=== PATIENT | female | born 1960 | race Hispanic/Latino ===

== ENCOUNTER 2018-07-08 22:47 | Emergency (ER) | payer MEDICAID, OTHER ==
[2018-07-08] MEDS ORDERED: PHENYTOIN SODIUM 50 MG/ML 2ML VIAL IV ONE (23:42)
[2018-07-08] MEDS ORDERED: SODIUM CHLORIDE 0.9% 100 ML IV ONE (23:42)
[2018-07-08 23:47] LABS: BASOPHILS % (AUTO) 1.2 % (0.0-5.0); EOSINOPHILS % (AUTO) 2.3 % (0.0-8.0); HEMATOCRIT 35.4 % (36-48); MONOCYTES % (AUTO) 7.4 % (3.0-13.0); NEUTROPHILS % (AUTO) 69.1 % (40.0-77.0); PLATELET COUNT (AUTO) 278 K/uL (130-400); RED BLOOD CELL COUNT(AUTO) 3.77 MIL/uL (4.00-5.50); RED CELL DISTRIBUTION WIDTH 14.3 % (11.0-15.5); WHITE BLOOD COUNT (AUTO) 15.4 K/uL (4.8-10.8)
[2018-07-08 23:53] LABS: CREATININE 0.8 mg/dL (0.5-1.5); POTASSIUM 3.7 mmol/L (3.5-5.1)
[2018-07-08 23:53] LABS: APPEARANCE,URINE Clear (CLEAR); BILIRUBIN,URINE Negative (NEGATIVE); COLOR,URINE Yellow (YELLOW); GLUCOSE, URINE (UA) Negative (NEGATIVE); KETONES,URINE Negative (NEGATIVE); LEUKOCYTE ESTERASE ,URINE Moderate (NEGATIVE); NITRATE,URINE Negative (NEGATIVE); OCCULT BLOOD,URINE Trace (NEGATIVE); PH,URINE 5.5 (5.0-8.0); PROTEIN,URINE Negative (NEGATIVE); UROBILINOGEN,URINE 0.2 mg/dL (0.2-1.0)
[2018-07-08] MEDS ORDERED: ACETAMINOPHEN-CODEINE ELIXIR 5 ML UDCUP ONE (23:57)
[2018-07-09] LABS: ALBUMIN 3.3 g/dL (3.5-5.0); BILIRUBIN,TOTAL 0.1 mg/dL (0.2-1.0); PHENYTOIN (DILANTIN) 7.7 mcg/mL (10.0-20.0); TOTAL PROTEIN, SERUM 7.6 g/dL (6.0-8.3)
[2018-07-09 00:02] LABS: BACTERIA,URINE Rare /HPF (None Seen); RBC,URINE 0-1 /HPF (0-1)
== END 2018-07-09 01:05 | disposition home or self-care (01) ==
LOC: EDH 22:47
DX: S00.12XA Contusion of left eyelid and periocular area, initial encounter (principal); G40.909 Epilepsy, unspecified, not intractable, without status epilepticus; J32.9 Chronic sinusitis, unspecified; R89.2 Abnormal level of other drugs, medicaments and biological substances in specimens from other organs, systems and tissues; I10 Essential (primary) hypertension; W18.39XA Other fall on same level, initial encounter; Y93.89 Activity, other specified; Y92.89 Other specified places as the place of occurrence of the external cause; Y99.8 Other external cause status
CPT/HCPCS: 36415; 70450; 70486; 80053; 80185; 81001; 85025; 93005; 96374; 99285; J1165

== ENCOUNTER 2019-03-25 23:35 | Emergency (ER) | payer MEDICAID ==
[2019-03-25 23:53] LABS: BASOPHILS % (AUTO) 0.5 % (0.0-5.0); EOSINOPHILS % (AUTO) 3.2 % (0.0-8.0); HEMATOCRIT 38.3 % (36-48); LYMPHOCYTES % (AUTO) 32.6 % (21.0-51.0); MEAN CORPUSCULAR HGB CONC 33.7 g/dL (32.0-36.0); MEAN CORPUSCULAR VOLUME 92.1 fL (79-99); MONOCYTES % (AUTO) 7.3 % (3.0-13.0); NEUTROPHILS % (AUTO) 56.4 % (40.0-77.0); PLATELET COUNT (AUTO) 237 K/uL (130-400); RED BLOOD CELL COUNT(AUTO) 4.16 MIL/uL (4.00-5.50); RED CELL DISTRIBUTION WIDTH 13.6 % (11.0-15.5); WHITE BLOOD COUNT (AUTO) 13.4 K/uL (4.8-10.8)
[2019-03-26 00:02] LABS: CREATININE 0.8 mg/dL (0.5-1.5); POTASSIUM 3.6 mmol/L (3.5-5.1)
[2019-03-26 00:05] LABS: INR 0.97 (0.85-1.15); PARTIAL THROMBOPLASTIN TIME 24.3 SEC (26.3-35.5); PROTHROMBIN TIME 10.2 SEC (9.6-11.6)
[2019-03-26 00:06] LABS: ALBUMIN 3.7 g/dL (3.5-5.0); BILIRUBIN,TOTAL 0.2 mg/dL (0.2-1.0); PHENYTOIN (DILANTIN) 10.3 mcg/mL (10.0-20.0); TOTAL PROTEIN, SERUM 7.5 g/dL (6.0-8.3)
[2019-03-26 01:10] LABS: APPEARANCE,URINE CLEAR (CLEAR); BILIRUBIN,URINE NEGATIVE (NEGATIVE); COLOR,URINE YELLOW (YELLOW); GLUCOSE, URINE (UA) NEGATIVE (NEGATIVE); KETONES,URINE NEGATIVE (NEGATIVE); LEUKOCYTE ESTERASE ,URINE TRACE (NEGATIVE); NITRATE,URINE NEGATIVE (NEGATIVE); OCCULT BLOOD,URINE TRACE-INTACT (NEGATIVE); PROTEIN,URINE NEGATIVE (NEGATIVE); UROBILINOGEN,URINE 0.2 mg/dL (0.2-1.0)
[2019-03-26 01:23] LABS: BACTERIA,URINE None Seen /HPF (None Seen); RBC,URINE 0-1 /HPF (0-1); SQUAMOUS EPITHELIAL CELL,UR Rare /HPF (0-2); WBC,URINE 0-1 /HPF (0-1)
[2019-03-26] MEDS ORDERED: CEFTRIAXONE SODIUM 1 GM ONE (02:31)
[2019-03-26] MEDS ORDERED: PHENYTOIN SODIUM 100 MG ERCAP PO ONE (02:31)
== END 2019-03-26 03:25 | disposition home or self-care (01) ==
LOC: EDH 23:35
DX: G40.909 Epilepsy, unspecified, not intractable, without status epilepticus (principal); J01.90 Acute sinusitis, unspecified; R79.0 Abnormal level of blood mineral; I10 Essential (primary) hypertension
CPT/HCPCS: 36415; 70450; 70486; 72125; 80053; 80185; 81001; 82550; 84484; 85025; 85610; 85730; 93005; 96374; 99285; J0696

== ENCOUNTER 2021-07-17 16:51 | Emergency (ER) | payer MEDICAID ==
[~2021-07-17] VITALS: Ht 157.5 cm; Wt 60.8 kg
[2021-07-17] MEDS ORDERED: LORAZEPAM 2 MG/ML 1 ML VIAL ONE (18:37)
[2021-07-17] MEDS ORDERED: LORAZEPAM 2 MG/ML 1 ML VIAL IVP STA (18:38)
[2021-07-17 18:48] LABS: BASOPHILS % (AUTO) 0.4 % (0.0-5.0); EOSINOPHILS % (AUTO) 0.8 % (0.0-8.0); HEMATOCRIT 39.9 % (36-48); LYMPHOCYTES % (AUTO) 16.8 % (21.0-51.0); MEAN CORPUSCULAR HEMOGLOBIN 27.6 pg (27.0-33.0); MEAN CORPUSCULAR HGB CONC 32.3 g/dL (32.0-36.0); MEAN CORPUSCULAR VOLUME 85.3 fL (79-99); MONOCYTES % (AUTO) 4.5 % (3.0-13.0); PLATELET COUNT (AUTO) 284 K/uL (130-400); RED BLOOD CELL COUNT(AUTO) 4.68 MIL/uL (4.00-5.50); RED CELL DISTRIBUTION WIDTH 13.2 % (11.0-15.5); WHITE BLOOD COUNT (AUTO) 21.8 K/uL (4.8-10.8)
[2021-07-17 19:46] LABS: CREATININE 1.1 mg/dL (0.5-1.5); POTASSIUM 4.8 mmol/L (3.5-5.1)
[2021-07-17 19:51] LABS: ALBUMIN 3.5 g/dL (3.5-5.0); BILIRUBIN,TOTAL 0.4 mg/dL (0.2-1.0); TOTAL PROTEIN, SERUM 7.6 g/dL (6.0-8.3)
[2021-07-17] MEDS ORDERED: AMOX-429 PO (20:13)
[2021-07-17 21:00] VITALS: BP 116/62
== END 2021-07-17 21:00 | disposition home or self-care (01) ==
LOC: EDH 16:51
DX: S05.11XA Contusion of eyeball and orbital tissues, right eye, initial encounter (principal); G40.909 Epilepsy, unspecified, not intractable, without status epilepticus; I10 Essential (primary) hypertension; J01.90 Acute sinusitis, unspecified; X58.XXXA Exposure to other specified factors, initial encounter; Y93.89 Activity, other specified; Y92.89 Other specified places as the place of occurrence of the external cause; Y99.8 Other external cause status
CPT/HCPCS: 36415; 70450; 70480; 80053; 85025; 93005; 96374; 99285; J2060

== ENCOUNTER 2021-12-09 11:17 | Observation (INO) | payer MEDICAID ==
[~2021-12-09] VITALS: Ht 160 cm; Wt 59.4 kg
[~2021-12-09 11:17] MED LIST: AMOX-429 PO
[2021-12-09 11:36] LABS: BASOPHILS % (AUTO) 0.4 % (0.0-5.0); EOSINOPHILS % (AUTO) 0.2 % (0.0-8.0); HEMATOCRIT 38.5 % (36-48); LYMPHOCYTES % (AUTO) 21.6 % (21.0-51.0); MEAN CORPUSCULAR HEMOGLOBIN 26.9 pg (27.0-33.0); MEAN CORPUSCULAR HGB CONC 32.2 g/dL (32.0-36.0); MEAN CORPUSCULAR VOLUME 83.5 fL (79-99); MONOCYTES % (AUTO) 8.3 % (3.0-13.0); NEUTROPHILS % (AUTO) 69.1 % (40.0-77.0); PLATELET COUNT (AUTO) 377 K/uL (130-400); RED BLOOD CELL COUNT(AUTO) 4.61 MIL/uL (4.00-5.50); RED CELL DISTRIBUTION WIDTH 13.5 % (11.0-15.5); WHITE BLOOD COUNT (AUTO) 17.1 K/uL (4.8-10.8)
[2021-12-09 11:44] LABS: CREATININE 1.1 mg/dL (0.5-1.5); POTASSIUM 3.3 mmol/L (3.5-5.1)
[2021-12-09 11:45] LABS: INR 1.01 (0.85-1.15)
[2021-12-09 11:49] LABS: ALBUMIN 3.7 g/dL (3.5-5.0); BILIRUBIN,TOTAL 0.3 mg/dL (0.2-1.0); TOTAL PROTEIN, SERUM 8.5 g/dL (6.0-8.3)
[2021-12-09] MEDS ORDERED: LEVETIRACETAM 500 MG in 0.9%NACL 100ML 100 ML IV STA (11:52)
[2021-12-09] MEDS ORDERED: COMPOUND IV MISC 1 EACH IVSOLN MISC PRN (12:00)
[2021-12-09 12:15] LABS: APPEARANCE,URINE CLEAR (CLEAR); BILIRUBIN,URINE NEGATIVE (NEGATIVE); COLOR,URINE YELLOW (YELLOW); GLUCOSE, URINE (UA) NEGATIVE (NEGATIVE); KETONES,URINE NEGATIVE (NEGATIVE); LEUKOCYTE ESTERASE ,URINE SMALL (NEGATIVE); NITRATE,URINE NEGATIVE (NEGATIVE); OCCULT BLOOD,URINE SMALL (NEGATIVE); PROTEIN,URINE NEGATIVE (NEGATIVE); UROBILINOGEN,URINE 0.2 mg/dL (0.2-1.0)
[2021-12-09 12:53] LABS: BACTERIA,URINE Rare /HPF (None Seen); RBC,URINE 0-1 /HPF (0-1); SQUAMOUS EPITHELIAL CELL,UR 0-2 /HPF (0-2); WBC,URINE 0-1 /HPF (0-1)
[2021-12-09] MEDS ORDERED: LEVE10006 PO (14:22)
[2021-12-09] MEDS ORDERED: LORAZEPAM 2 MG/ML 1 ML VIAL ONE ×2 (17:04→19:13)
[2021-12-09 20:00] VITALS: BP 125/63
[2021-12-09] MEDS ORDERED: 0.9%NACL 1000ML 1,000 ML IV SCH (20:00)
[2021-12-09] MEDS ORDERED: ACETAMINOPHEN 325 MG TAB PO PRN (20:00)
[2021-12-09] MEDS ORDERED: ONDANSETRON 4MG INJ IV PRN (20:00)
[2021-12-09] MEDS ORDERED: LORAZEPAM 2 MG/ML 1 ML VIAL IM PRN (20:00)
[2021-12-09] MEDS ORDERED: POTASSIUM CHLORIDE 20MEQ/100ML 100 ML IV PRN (21:30)
[2021-12-09] MEDS ORDERED: LIDOCAINE HCL-MPF 1% 2ML VIAL IV PRN (21:30)
[2021-12-09] MEDS ORDERED: LEVETIRACETAM 500 MG in 0.9%NACL 100ML 100 ML IV SCH (22:00)
[2021-12-10] MEDS ORDERED: ENOXAPARIN SODIUM 40 MG/0.4 ML SYRINGE SQ SCH (09:00)
[2021-12-10] MEDS ORDERED: FAMOTIDINE 20MG TAB PO SCH (09:00)
== END 2021-12-09 21:20 | disposition left against medical advice (07) ==
LOC: EDH 11:17 → EDHIP 11:18 → UNDOADMOB 19:51
PROVIDERS: ADMIT Internal Medicine; ATTEND Internal Medicine
DX: R56.9 Unspecified convulsions (principal); S09.90XA Unspecified injury of head, initial encounter; E87.6 Hypokalemia; G83.84 Todd's paralysis (postepileptic); D72.829 Elevated white blood cell count, unspecified; I10 Essential (primary) hypertension; E87.1 Hypo-osmolality and hyponatremia; F03.90 Unspecified dementia, unspecified severity, without behavioral disturbance, psychotic disturbance, mood disturbance, and anxiety; R29.6 Repeated falls; W19.XXXA Unspecified fall, initial encounter; Y93.89 Activity, other specified; Y92.89 Other specified places as the place of occurrence of the external cause; Z79.899 Other long term (current) drug therapy
CPT/HCPCS: 36415; 70450; 71045; 80053; 81001; 84484; 85025; 85610; 93005; 96365; 96376; 99285; G0378; J1953; J2060 ×2

== ENCOUNTER 2022-06-06 23:14 | Emergency (ER) | payer MEDICAID ==
[~2022-06-06] VITALS: Ht 157.5 cm; Wt 59.4 kg
[~2022-06-06 23:14] MED LIST changes: +LEVE10006 PO
[2022-06-06 23:44] LABS: BASOPHILS % (AUTO) 0.5 % (0.0-5.0); EOSINOPHILS % (AUTO) 1.6 % (0.0-8.0); HEMATOCRIT 40.2 % (36-48); LYMPHOCYTES % (AUTO) 25.1 % (21.0-51.0); MEAN CORPUSCULAR HEMOGLOBIN 27.4 pg (27.0-33.0); MEAN CORPUSCULAR HGB CONC 32.8 g/dL (32.0-36.0); MEAN CORPUSCULAR VOLUME 83.6 fL (79-99); MONOCYTES % (AUTO) 8.3 % (3.0-13.0); NEUTROPHILS % (AUTO) 63.9 % (40.0-77.0); PLATELET COUNT (AUTO) 328 K/uL (130-400); RED BLOOD CELL COUNT(AUTO) 4.81 MIL/uL (4.00-5.50); RED CELL DISTRIBUTION WIDTH 13.9 % (11.0-15.5); WHITE BLOOD COUNT (AUTO) 20.8 K/uL (4.8-10.8)
[2022-06-06 23:53] LABS: CREATININE 1.1 mg/dL (0.5-1.5); POTASSIUM 3.3 mmol/L (3.5-5.1)
[2022-06-06 23:58] LABS: ALBUMIN 3.7 g/dL (3.5-5.0); TOTAL PROTEIN, SERUM 8.5 g/dL (6.0-8.3)
[2022-06-07] MEDS ORDERED: LEVETIRACETAM 500 MG/5 ML SD VIAL IV SCH
[2022-06-07] MEDS ORDERED: KETOROLAC 15MG/ML VIAL (15MG/ML) IV ONE
[2022-06-07 00:27] LABS: APPEARANCE,URINE CLEAR (CLEAR); BILIRUBIN,URINE NEGATIVE (NEGATIVE); COLOR,URINE YELLOW (YELLOW); GLUCOSE, URINE (UA) NEGATIVE (NEGATIVE); KETONES,URINE NEGATIVE (NEGATIVE); LEUKOCYTE ESTERASE ,URINE SMALL (NEGATIVE); NITRATE,URINE NEGATIVE (NEGATIVE); OCCULT BLOOD,URINE SMALL (NEGATIVE); PROTEIN,URINE NEGATIVE (NEGATIVE); UROBILINOGEN,URINE 0.2 mg/dL (0.2-1.0)
[2022-06-07] MEDS ORDERED: KCL 20 MEQ ERTAB PO ONE (00:30)
[2022-06-07 00:38] LABS: BACTERIA,URINE None Seen /HPF (None Seen); RBC,URINE None Seen /HPF (0-1)
[2022-06-07] MEDS ORDERED: ACET-2079 PO (00:57)
[2022-06-07] MEDS ORDERED: IBUP-2070 PO (00:57)
[2022-06-07 01:01] VITALS: BP 131/85
== END 2022-06-07 01:22 | disposition home or self-care (01) ==
LOC: EDH 23:14
DX: S92.301A Fracture of unspecified metatarsal bone(s), right foot, initial encounter for closed fracture (principal); R56.9 Unspecified convulsions; Z79.1 Long term (current) use of non-steroidal anti-inflammatories (NSAID); W18.39XA Other fall on same level, initial encounter; Y93.89 Activity, other specified; Y92.89 Other specified places as the place of occurrence of the external cause; Y99.8 Other external cause status
CPT/HCPCS: 99285; 96365; 29515; 96366; 96375; 82550; 83735; 84484; 80053; 85025; 81001; 36415; 73610; 73630; 93005; J1953; J1885

== ENCOUNTER 2024-05-29 11:50 | Emergency (ER) | payer MEDICARE, MEDICAID ==
[~2024-05-29] VITALS: Ht 154.9 cm; Wt 56.7 kg
[~2024-05-29 11:50] MED LIST changes: -AMOX-429 PO; +AMOX1TAB16 PO; +BROM118S48 PO; -LEVE10006 PO; +ONDA-104 PO
--- NOTE | 2024-05-29 13:42 | ERN ---
ED Note History of Present Illness Stated Complaint: MULTIPLE FALL Chief Complaint: Mechanical Fall Time Seen by MD: 13:38 Dictation: This is a 64-year-old with known history of seizure disorder was found by the caregiver in the bathroom. She apparently went to use the toilet and lost balance fell down and hit her forehead. No one witnessed the seizure and the caregiver could not corroborate the episode.. No loss of consciousness. No bladder or bowel incontinence. There was no tongue biting. Caregiver indicated that she has not had seizures in a long time and the patient was denying any actual seizure when she went to the toilet. She did state that she hit her forehead. She is not on any blood thinners. No visual disturbance weakness of extremities Temperature 98.4 pulse 82 respirations 16 blood pressure 152/82 with a pulse oximetry of 100% on room air Allergies: Coded Allergies: No Known Allergies (Unverified Allergy, Unknown, 03/25/19) Home Meds Active Scripts Guaifenesin (Mucinex) 600 Mg Tablet.er, 600 MG PO BID, #30 TAB Prov:RUPERTO PROCTOR MD 05/29/24 Sulfamethoxazole/Trimethoprim (Bactrim Ds Tablet) 800 Mg-160 Mg Tablet, 1 TAB PO BID for 14 Days, #28 TAB 0 Refills Prov:RUPERTO PROCTOR MD 05/29/24 Prednisone (Prednisone) 20 Mg Tablet, 1 TAB PO AD for 6 Days, #14 TAB 0 Refills TAKE 1 TAB BY MOUTH THREE TIMES PER DAY X3 DAYS, THEN TAKE 1 TAB BY MOUTH TWICE A DAY X2 DAYS, THEN TAKE 1 TAB BY MOUTH ONCE A DAY X1 DAY. Prov:RUPERTO PROCTOR MD 05/29/24 D-Methorphan Hb/P-Epd HCl/Bpm (Bromfed Dm Cough Syrup) 118 Ml Syrup, 118 ML PO BID for 7 Days, #1 BOTTLE 0 Refills Prov:JULIO GEORGE 05/31/23 Ondansetron HCl (Ondansetron HCl) 4 Mg Tablet, 4 MG PO TIDP PRN for NAUSEA, #21 TAB 1 Refill Prov:JULIO GEORGEP 05/31/23 Amoxicillin/Potassium Clav (Amox Tr-K Clv 875-125 mg Tab) 1 Each Tablet, 1 EACH PO BID, #14 TAB 0 Refills Prov:JULIO GEORGE [employer]AT [employer] 05/31/23 Past Medical History Past Medical History: GERD, Seizure Surgical History: None Social History: ETOH, Lives with family, Other History: Not Applicable RN Note Reviewed/Agreed w/PFSH: Yes Review of System Dictation As described in the history of present illness Constitutional: Negative for fever,chills, and weight loss Eyes: Negative for injury, pain,redness, and discharge ENT: Negative for injury,pain or swelling Cardiovascular: Negative for chest pain, palpitations, and edema Respiratory: Negative for shortness of breath, cough, and wheezing, Abdomen/GI: Negative for abdominal pain, nausea, vomiting, diarrhea, and constipation Back: Negative for injury and pain : Negative for injury, bleeding and discharge MS/Extremity: Positive for injury and but no deformity Skin: Negative for rash, and discoloration Neuro: Negative for headache, weakness, numbness, tingling, and seizure Psych: Negative for suicide ideation, homicidal ideation, and hallucinations Initial Vital Sign VS Vital Signs Date Time Temp Pulse Resp B/P (MAP) Pulse Ox O2 Delivery O2 Flow Rate FiO2 05/29/24 11:51 99.0 96 16 162/84 100 Room Air 0 05/29/24 13:38 21 Physical Exam Dictation General: awake, alert, NAD elderly female very pleasant Head/Face: Normocephalic, atraumatic Eyes: PERRL, EOMI, vision at baseline ENT: oral cavity clear, TMs clear, no signs of infection Neck: Trachea midline, supple, no nuchal rigidity Cardiovascular: RRR, normal S1/S2, No MRGs, no JVD Respiratory: CTAB, no respiratory distress, No rales or wheezes Abdomen: Soft, non-tender, non-distended, normal bowel sounds, no guarding or rebound. Skin: Warm, dry, normal turgor, no rash small forehead bruise MS/Extremity: Pulses equal, no cyanosis, neurovascular intact, FROM some pain when she moves her left arm Neuro: COAx4, GCS 15, strength 5/5, CN 2-12 intact, normal cerebellar exam, normal gait, Psych: Normal behavior, mood, and affect normal Extremities-trace edema without any palpable cords, Homans sign is negative Results (Laboratory/Radiology) Laboratory/Radiology Laboratory Tests Test 05/29/24 14:22 White Blood Count 14.7 K/uL (4.8-10.8) H Red Blood Count 4.76 MIL/uL (4.00-5.50) Hemoglobin 14.0 g/dL (12.0-16.0) Hematocrit 42.7 % (36-48) Mean Corpuscular Volume 89.7 fL (79-99) Mean Corpuscular Hemoglobin 29.4 pg (27.0-33.0) Mean Corpuscular Hemoglobin Concent 32.8 g/dL (32.0-36.0) Red Cell Distribution Width 13.2 % (11.0-15.5) Platelet Count 318 K/uL (130-400) Mean Platelet Volume 11.3 fL (7.5-10.5) H Immature Granulocyte % (Auto) 0.3 % (0-1) Neutrophils (%) (Auto) 72.3 % (40.0-77.0) Lymphocytes (%) (Auto) 20.3 % (21.0-51.0) L Monocytes (%) (Auto) 6.1 % (3.0-13.0) Eosinophils (%) (Auto) 0.6 % (0.0-8.0) Basophils (%) (Auto) 0.4 % (0.0-5.0) Neutrophils # (Auto) 10.6 K/uL (1.8-7.7) H Lymphocytes # (Auto) 3.0 K/uL (1.0-4.8) Monocytes # (Auto) 0.9 K/uL (0.1-1.0) Eosinophils # (Auto) 0.09 K/uL (0.00-0.70) Basophils # (Auto) 0.06 K/uL (0.00-0.20) Absolute Immature Granulocyte (auto 0.05 K/uL (0-1) Nucleated Red Blood Cells 0.0 % (0.0-0.19) Sodium Level 141 mmol/L (136-145) Potassium Level 4.1 mmol/L (3.5-5.1) Chloride Level 102 mmol/L (101-111) Carbon Dioxide Level 28 mmol/L (21-32) Blood Urea Nitrogen 5 mg/dL (7-18) L Creatinine 1.0 mg/dL (0.5-1.0) Glomerular Filtration Rate Calc 63 mL/min (>90) Random Glucose 115 mg/dL (70-105) H Total Calcium 9.8 mg/dL (8.5-10.1) Total Bilirubin 0.5 mg/dL (0.2-1.0) Aspartate Amino Transf (AST/SGOT) 20 U/L (10-37) Alanine Aminotransferase (ALT/SGPT) 17 U/L (12-78) Alkaline Phosphatase 108 U/L (50-136) Total Protein 9.0 g/dL (6.0-8.3) H Albumin 4.3 g/dL (3.5-5.0) Levetiracetam (Keppra) Level 61.9 ug/mL (10.0-40.0) H PATIENT: RAJINDER WOOD MR#: [id number] : 1960 SEX: F AGE: 64 LOCATION: [facility] ORDER 1342 STATUS: REG REPORT#: [id number] SERVICE 1340 REASON: seizures, falls ORDERING PHYSICIAN: RUPERTO PROCTOR MD PROCEDURE: HEAD WO - CT HEAD/BRAIN W/O CONTRAST Exam: NONCONTRAST CT BRAIN REASON: seizures, falls. COMPARISON: 05/30/2023 TECHNIQUE: Images are obtained from vertex to the skull base. The exam was performed without IV contrast. FINDINGS: There is normal appearing brain parenchyma. There are no focal mass lesions. There is is no evidence of intracranial hemorrhage or acute stroke. Ventricles and sulci appear normal. Posterior fossa and brainstem structures are unremarkable. There is a scalp contusion in the frontal area without evidence of underlying fracture. There are air-fluid levels in both maxillary sinuses consistent with sinusitis. There is extensive opacification of ethmoid air cells as well as the left side of the sphenoid sinus, there is mucosal thickening in both frontal sinuses as well. IMPRESSION: 1. Normal intracranial findings, no acute to intracranial finding. 2. Scalp contusion in the frontal region without evidence of fracture. 3. Extensive trujillo sinusitis with air-fluid levels in both maxillary sinuses. CT was performed with one or more following dose reduction techniques: automated exposure control, adjustment of the mA and kv according to patient's size, or use of a iterative reconstruction technique. DICTATED BY: KENN DOOLEY MD DATE: 05/29/24 1439 ELECTRONICALLY SIGNED BY: KENN DOOLEY MD DATE: 05/29/24 1443 Labs Reviewed?: Yes ED Course ED Course Orders Procedure Category Date Status Time Keppra LAB 05/29/24 Complete (Levetiracetam) Level 13:40 Cbc With Differential LAB 05/29/24 Complete 13:40 Comprehensive LAB 05/29/24 Complete Metabolic Panel 13:40 Ct Head/Brain W/O CT 05/29/24 Resulted Contrast 13:40 0.9%Nacl 1000ml (Ns PHA 05/29/24 Complete 1000ml) 14:00 Methylprednisolone PHA 05/29/24 Complete Succ 125mg (Solu-Medr 16:00 Ceftriaxone 1g Vial PHA 05/29/24 Complete (Rocephin 1g Inj) 16:00 Levetiracetam (Keppra PHA 05/29/24 Complete Iv) 16:00 Current Medications Medications (Trade) Dose Ordered Sig/Luis Eduardo Route PRN Reason Start Time Stop Time Status Last Admin Dose Admin Ceftriaxone Sodium (Rocephin 1g Inj) 1 gm ONCE ONCE IVPB 05/29/24 16:00 05/29/24 16:01 DC 05/29/24 16:04 Levetiracetam (Keppra Iv) 1,000 mg ONCE ONCE IV 05/29/24 16:00 05/29/24 16:01 DC 05/29/24 16:04 Methylprednisolone Sodium Succinate (Solu-Medrol 125mg) 125 mg ONCE ONCE IM 05/29/24 16:00 05/29/24 16:01 DC 05/29/24 16:04 Sodium Chloride 1,000 ml @ 125 mls/hr ONCE ONCE IV 05/29/24 14:00 05/29/24 17:12 DC 05/29/24 14:06 Vital Signs Date Time Temp Pulse Resp B/P (MAP) Pulse Ox O2 Delivery O2 Flow Rate FiO2 05/29/24 16:29 98.4 82 16 152/82 100 Room Air* 0 05/29/24 13:38 98.4 96 16 162/84 100 Room Air* 0 05/29/24 11:51 99.0 96 16 162/84 100 Room Air 0 We will perform diagnostic labs, advanced imaging and administer medications according to the patient's complaint. Once the results are available, will review and personally interpreted the labs to rule out any acute life-threate darius emergency the trach require immediate intervention and treatment. I will then re-evaluate the patient after treatment and diagnostic exams have return to determine whether the patient requires any further testing, can safely be discharged home or need further admission to hospital for additional treatment and evaluation. I reviewed the labs and there is a mild leukocytosis. CT scan of the head did not show any acute intracranial abnormalities but scalp contusion and severe pansinusitis. I updated the patient and the caregiver on available information and plans were for antibiotics and a small dose of steroid to reduce the in flammation. I have also recommended mucolytic and a follow-up eventually with ENT physician if there is no improvement. Patient did not want to stay for any observations in the hospital and wanted to be discharged to home with a caregiver Medical Decision Making MDM MDM: Differential diagnosis: Mechanical ground level fall with blunt injuries, f ractures, cardiac event, neurological event Rationale: Tests considered and ordered secondary to shared decision making include: Previous outside records reviewed: Old ER visits. Risk of complication and/or morbidity or mortality of patient management: None Medications-Per medication reconciliation Need for hospitalization: Patient does not meet criteria for hospitalization. Need for emergency major/minor surgery: No There are no social concerns with this patient. Prescription drug management Prescriptions will include symptomatic care Patient's prior external medical records from other ER visits were reviewed by me as indicated. Prior testing and results from previous visits were reviewed. Prior tests were taken into account with medical decision making and resource utilization, independent historian/historians were used to obtain complete medical history. I independently interpreted the test that were performed, results were reviewed by me and considered findings on radiology if ordered. Medical management and examination interpretation discussions were had by me with other qualified healthcare professionals as indicated for the patient's care. Problem List Problem List: (1) Fall from ground level (2) Contusion of scalp (3) Seizure disorder (4) Acute pansinusitis DX & DISP Disposition: Discharge Departure Impression: Primary Impression: Seizure disorder Additional Impressions: Fall from ground level, Contusion of scalp, Acute pansinusitis Condition: Stable Scripts Guaifenesin (Mucinex) 600 Mg Tablet.er 600 MG PO BID, #30 TAB Prov: RUPERTO PROCTOR MD 05/29/24 Sulfamethoxazole/Trimethoprim (Bactrim Ds Tablet) 800 Mg-160 Mg Tablet 1 TAB PO BID for 14 Days, #28 TAB 0 Refills Prov: RUPERTO PROCTOR MD 05/29/24 Prednisone (Prednisone) 20 Mg Tablet 1 TAB PO AD for 6 Days, #14 TAB 0 Refills TAKE 1 TAB BY MOUTH THREE TIMES PER DAY X3 DAYS, THEN TAKE 1 TAB BY MOUTH TWICE A DAY X2 DAYS, THEN TAKE 1 TAB BY MOUTH ONCE A DAY X1 DAY. Prov: RUPERTO PROCTOR MD 05/29/24 Additional Instructions: Follow-up with primary care provider in 1 to 2 days. Take medications as directed here in the emergency room. Okay to continue home medications unless otherwise discussed during your visit in the emergency room today. Return to your nearest emergency room if symptoms worsen or if there is no improvement. Call 911 if you need immediate assistance. Take Tylenol or Motrin [id number] as needed and if no contraindications are present. Increase oral hydration. A wound culture or urine culture was ordered here in the emergency room department please follow-up with primary care provider and advise them to get repeat ports from our facility. If symptoms do not improve, patient needs to return to ED or make an appointment with the ENT Referrals: LOGAN SPRAGUE MD (PCP) RUPERTO PROCTOR MD May 29, 2024 13:42
[2024-05-29] MEDS: 0.9%NACL 1000ML 1,000 ML IV ONE (14:06)
[2024-05-29 14:40] LABS: BASOPHILS # (AUTO) 0.06 K/uL (0.00-0.20); BASOPHILS % (AUTO) 0.4 % (0.0-5.0); EOSINOPHILS # (AUTO) 0.09 K/uL (0.00-0.70); EOSINOPHILS % (AUTO) 0.6 % (0.0-8.0); HEMATOCRIT 42.7 % (36-48); IMMATURE GRANULOCYTE ABSOLUTE 0.05 K/uL (0-1); LYMPHOCYTES % (AUTO) 20.3 % (21.0-51.0); MEAN CORPUSCULAR HEMOGLOBIN 29.4 pg (27.0-33.0); MEAN CORPUSCULAR HGB CONC 32.8 g/dL (32.0-36.0); MEAN CORPUSCULAR VOLUME 89.7 fL (79-99); MONOCYTES # (AUTO) 0.9 K/uL (0.1-1.0); MONOCYTES % (AUTO) 6.1 % (3.0-13.0); NEUTROPHILS # (AUTO) 10.6 K/uL (1.8-7.7); NEUTROPHILS % (AUTO) 72.3 % (40.0-77.0); PLATELET COUNT (AUTO) 318 K/uL (130-400); RED BLOOD CELL COUNT(AUTO) 4.76 MIL/uL (4.00-5.50); RED CELL DISTRIBUTION WIDTH 13.2 % (11.0-15.5); WHITE BLOOD COUNT (AUTO) 14.7 K/uL (4.8-10.8)
--- NOTE | 2024-05-29 14:43 | HMCIMG ---
Exam: NONCONTRAST CT BRAIN REASON: seizures, falls. COMPARISON: 05/30/2023 TECHNIQUE: Images are obtained from vertex to the skull base. The exam was performed without IV contrast. FINDINGS: There is normal appearing brain parenchyma. There are no focal mass lesions. There is is no evidence of intracranial hemorrhage or acute stroke. Ventricles and sulci appear normal. Posterior fossa and brainstem structures are unremarkable. There is a scalp contusion in the frontal area without evidence of underlying fracture. There are air-fluid levels in both maxillary sinuses consistent with sinusitis. There is extensive opacification of ethmoid air cells as well as the left side of the sphenoid sinus, there is mucosal thickening in both frontal sinuses as well. IMPRESSION: 1. Normal intracranial findings, no acute to intracranial finding. 2. Scalp contusion in the frontal region without evidence of fracture. 3. Extensive trujillo sinusitis with air-fluid levels in both maxillary sinuses. CT was performed with one or more following dose reduction techniques: automated exposure control, adjustment of the mA and kv according to patient's size, or use of a iterative reconstruction technique.
[2024-05-29 14:54] LABS: POTASSIUM 4.1 mmol/L (3.5-5.1)
[2024-05-29 14:59] LABS: ALBUMIN 4.3 g/dL (3.5-5.0); BILIRUBIN,TOTAL 0.5 mg/dL (0.2-1.0)
[2024-05-29] MEDS: Solu-medROL 125MG VIAL IM ONE (16:04)
[2024-05-29] MEDS: cefTRIAXone 1G VIAL IVPB ONE (16:04)
[2024-05-29] MEDS: leveTIRACEtam 500 MG/5 ML SD VIAL IV ONE (16:04)
[2024-05-29 16:29] VITALS: BP 152/82; PULSE 82; RESP 16; TEMP 98.4; O2SAT 100
[2024-05-29] MEDS ORDERED: GUAI600T50 PO (16:53)
[2024-05-29] MEDS ORDERED: PRED20TA3 PO (16:53)
[2024-05-29] MEDS ORDERED: SULF1TAB42 PO (16:53)
== END 2024-05-29 17:11 | disposition home or self-care (01) ==
LOC: EDH 11:50
DX: S00.03XA Contusion of scalp, initial encounter (principal); J01.40 Acute pansinusitis, unspecified; R56.9 Unspecified convulsions; W18.11XA Fall from or off toilet without subsequent striking against object, initial encounter; Y93.F9 Activity, other caregiving; Y92.89 Other specified places as the place of occurrence of the external cause; Y99.8 Other external cause status
CPT/HCPCS: 99285; 96374; 70450; 96375; 80053; 85025; 36415; 80177; 96372; J1953; J7030; J2919; J0696

== ENCOUNTER 2024-06-05 14:43 | Emergency (ER) | payer MEDICARE, MEDICAID ==
[~2024-06-05] VITALS: Ht 154.9 cm; Wt 57.6 kg
[~2024-06-05 14:43] MED LIST changes: +GUAI600T50 PO; +PRED20TA3 PO; +SULF1TAB42 PO
[2024-06-05 15:40] LABS: BASOPHILS # (AUTO) 0.02 K/uL (0.00-0.20); BASOPHILS % (AUTO) 0.1 % (0.0-5.0); HEMATOCRIT 42.6 % (36-48); LYMPHOCYTES # (AUTO) 2.1 K/uL (1.0-4.8); MEAN CORPUSCULAR HEMOGLOBIN 28.8 pg (27.0-33.0); MEAN CORPUSCULAR HGB CONC 33.1 g/dL (32.0-36.0); MEAN CORPUSCULAR VOLUME 87.1 fL (79-99); MONOCYTES # (AUTO) 0.6 K/uL (0.1-1.0); MONOCYTES % (AUTO) 3.3 % (3.0-13.0); NEUTROPHILS # (AUTO) 14.5 K/uL (1.8-7.7); NEUTROPHILS % (AUTO) 83.4 % (40.0-77.0); PLATELET COUNT (AUTO) 437 K/uL (130-400); RED BLOOD CELL COUNT(AUTO) 4.89 MIL/uL (4.00-5.50); RED CELL DISTRIBUTION WIDTH 13.8 % (11.0-15.5); WHITE BLOOD COUNT (AUTO) 17.4 K/uL (4.8-10.8)
[2024-06-05 15:50] LABS: CREATININE 1.3 mg/dL (0.5-1.0); POTASSIUM 4.4 mmol/L (3.5-5.1)
[2024-06-05 15:55] LABS: ALBUMIN 3.7 g/dL (3.5-5.0); BILIRUBIN,TOTAL 0.2 mg/dL (0.2-1.0); TOTAL PROTEIN, SERUM 7.9 g/dL (6.0-8.3)
[2024-06-05 18:36] VITALS: BP 121/68; PULSE 92; RESP 16; O2SAT 97
== END 2024-06-05 18:36 | disposition home or self-care (01) ==
LOC: EDH 14:43
DX: S00.12XA Contusion of left eyelid and periocular area, initial encounter (principal); S20.219A Contusion of unspecified front wall of thorax, initial encounter; R53.1 Weakness; I10 Essential (primary) hypertension; Z79.899 Other long term (current) drug therapy; Z79.2 Long term (current) use of antibiotics; W18.39XA Other fall on same level, initial encounter; Y93.89 Activity, other specified; Y92.89 Other specified places as the place of occurrence of the external cause; Y99.8 Other external cause status
CPT/HCPCS: 36415; 70450; 71045; 80053; 80177; 84484; 85025